=== PATIENT | male | born 1995 | race Caucasian/White ===

== ENCOUNTER 2020-10-12 00:45 | Emergency (ER) | payer OTHER ==
[~2020-10-12 00:45] MED LIST: BACTRIM DS TAB1 EACH PO; BACTROBAN OINT22 GM EXT
[2020-10-12] MEDS ORDERED: IBUPROFEN600 MG PO (03:24)
[2020-10-12] MEDS ORDERED: CLEOCIN HCL300 MG PO (03:24)
== END 2020-10-12 04:30 | disposition home or self-care (01) ==
LOC: ER1 00:45
DX: K05.219 Aggressive periodontitis, localized, unspecified severity (principal); F17.210 Nicotine dependence, cigarettes, uncomplicated
CPT/HCPCS: 96374; 96375; 99282; J1885

== ENCOUNTER 2021-01-15 04:46 | Emergency (ER) | payer OTHER ==
[~2021-01-15 04:46] MED LIST changes: +CLEOCIN HCL300 MG PO; +IBUPROFEN600 MG PO
== END 2021-01-15 05:42 | disposition home or self-care (01) ==
LOC: ER1 04:46
DX: J06.9 Acute upper respiratory infection, unspecified (principal); F17.200 Nicotine dependence, unspecified, uncomplicated; Z20.822 Contact with and (suspected) exposure to COVID-19
CPT/HCPCS: 87081; 87880; 99283; U0003